=== PATIENT | male | born 1980 | race Two or more races ===

== ENCOUNTER 2020-09-06 13:11 | Emergency (ER) | payer OTHER ==
[~2020-09-06] VITALS: Ht 152.4 cm; Wt 74.8 kg
--- NOTE | 2020-09-06 13:28 | Emergency Room Report ---
History of Present Illness General Chief Complaint: Earache Source: Patient Present Illness HPI 40-year-old male with no significant past medical history here complaining of 2 days of 10 out of 10 right ear pain and swelling and posterior cervical lymphadenopathy. Also reports some pus drainage. Denies any sore throat, fever and chills, cough and congestion, headache and dizziness. Denies vertigo. 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 Denies hearing loss or tinnitus. Has not taken medication and Advil for symptom relief. Vital signs within normal limits. Allergies: Coded Allergies: PENICILLINS (Verified Allergy, Unknown, 09/06/20) COVID-19 Screening Contact w/high risk pt: No Experienced COVID-19 symptoms?: No COVID-19 Testing performed AUTO CLE[employer]ER: No Patient History Past Medical History: see triage record Past Surgical History: none Pertinent Family History: none Immunizations: UTD Reviewed Nursing Documentation: PMH: Agreed; PSxH: Agreed Nursing Documentation-PMH Past Medical History: No Stated History Review of Systems All Other Systems: negative except mentioned in HPI Physical Exam Vital Signs Date Time Temp Pulse Resp B/P (MAP) Pulse Ox O2 Delivery O2 Flow Rate FiO2 09/06/20 13:17 98.1 91 16 114/66 (82) 95 Room Air Sp02 EP Interpretation: reviewed, normal General Appearance: no apparent distress, alert, GCS 15, non-toxic Head: normocephalic, atraumatic Eyes: bilateral eye normal inspection, bilateral eye PERRL ENT: other - Right TM bulging with pus in the ear canal Neck: full range of motion, supple/symm/no masses, other - Right posterior cervical lymphadenopathy Respiratory: chest non-tender, lungs clear, normal breath sounds, speaking full sentences Cardiovascular #1: regular rate, rhythm Gastrointestinal: soft Musculoskeletal: back normal Neurologic: alert, motor strength/tone normal, oriented x3, sensory intact, responsive, speech normal Psychiatric: judgement/insight normal, memory normal, mood/affect normal, no suicidal/homicidal ideation Skin: no rash Lymphatic: adenopathy - Right-sided posterior cervical lymphadenopathy Medical Decision Making PA Attestation All diagnoses and treatment plans were reviewed and discussed with my supervising physician Dr. Lopez Diagnostic Impression: Primary Impression: Otitis media Additional Impression: Lymph edema ER Course 40-year-old male with no significant past medical history here complaining of 2 days of 10 out of 10 right ear pain and swelling and posterior cervical lymphadenopathy. Also reports some pus drainage. Denies any sore throat, fever and chills, cough and congestion, headache and dizziness. Denies vertigo. 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 Denies hearing loss or tinnitus. Has not taken medication and Advil for symptom relief. Vital signs within normal limits. Ddx considered but are not limited to: Otitis media, mastoiditis, otitis externa, strep pharyngitis, URI, tonsillitis, peritonsillar abscess, influneza Vital signs: are WNL, pt. is afebrile H&PE are most consistent with: Otitis media, lymphedema ORDERS: Levaquin as patient is allergic to penicillin family, prednisone, ibuprofen ED INTERVENTIONS: None required at this time. DISCHARGE: At this time pt. is stable for d/c to home. Will provide printed patient care instructions, and any necessary prescriptions. Care plan and follow up instructions have been discussed with the patient prior to discharge. Advised patient to follow-up with ENT, take medication as directed, if worsening symptom return to the emergency room. At this time I do not feel any mastoid tenderness and do not believe the patient needs a CT scan at this time. However advised patient to return to emergency room if radiating pain, worsening symptoms or fever. Last Vital Signs Date Time Temp Pulse Resp B/P (MAP) Pulse Ox O2 Delivery O2 Flow Rate FiO2 09/06/20 13:17 98.1 91 16 114/66 (82) 95 Room Air Disposition: HOME, SELF-CARE Condition: Stable Scripts Ibuprofen (Ibu) 800 Mg Tablet 800 MG PO TID, #30 TAB Prov: Luci Unger 09/06/20 Prednisone* (PREDNISONE*) 20 Mg Tablet 40 MG ORAL DAILY for 5 Days, #10 TAB Prov: Luci Unger 09/06/20 Levofloxacin* (LEVOFLOXACIN*) 750 Mg Tablet 750 MG ORAL DAILY for 7 Days, #7 TAB Prov: Luci Unger 09/06/20 Patient Instructions: Lymphedema, Otitis Media, Adult, [id number] Additional Instructions: Take medication as directed, follow-up with your primary care provider, referral to ear nose throat doctor may be needed upon request of your primary care provider, if worsening symptoms return to the emergency room Luci Unger Sep 06, 2020 13:28
[2020-09-06] MEDS ORDERED: IBU800 MG PO (13:29)
[2020-09-06] MEDS ORDERED: LEVOFLOXACIN750 MG ORAL (13:29)
[2020-09-06] MEDS ORDERED: PREDNISONE20 MG ORAL (13:29)
--- NOTE | 2020-09-06 13:45 | NUR ---
ED Nurse Note: Pt cleared by health care Provider for discharge. DC instructions/prescription was given and explained to pt and verbalized understanding of teachings. All medical deviecs such as ID band removed. Pt is AAO x4, ambulatory and left with all personal belongings.
[2020-09-06 17:23] VITALS: BP 114/66
== END 2020-09-06 13:45 | disposition home or self-care (01) ==
LOC: EMR 13:28
DX: H66.91 Otitis media, unspecified, right ear (principal); I89.0 Lymphedema, not elsewhere classified; Z88.0 Allergy status to penicillin
CPT/HCPCS: 99282